=== PATIENT | female | born 1945 ===

== ENCOUNTER 2023-06-02 02:32 | Outpatient (CLI) | payer MEDICARE, BC ==
[2023-06-02] VITALS (20 sets, daily range): BP systolic 120–174; BP diastolic 63–86; PULSE 57–82
== END 2023-06-02 23:59 | disposition home or self-care (01) ==
LOC: CARD DIAG 02:32
PROVIDERS: ATTEND Family Medicine
DX: R55 Syncope and collapse (principal)
CPT/HCPCS: 93660